=== PATIENT | male | born 1960 | race Caucasian/White ===

== ENCOUNTER 2024-12-10 13:13 | Emergency (ER) | payer MEDICARE, OTHER, SELFPAY ==
--- NOTE | ~2024-12-10 | XR_ITS ---
HISTORY: back pain COMPARISON: 02/07/2016 TECHNIQUE: 2 view lumbar spine. FINDINGS: Redemonstration of trace levoscoliotic curvature of the lumbar spine centered at the level of L3/L4, unchanged from prior. Remaining lumbar vertebral bodies are otherwise normally aligned. There are 5 non-rib bearing lumbar vertebral bodies. Disc spaces and vertebral body heights are well maintained. There are no lytic or sclerotic lesions. Paraspinal soft tissues are unremarkable. Trace degenerative disease with osteophyte formation. IMPRESSION: Trace degenerative disease, without acute compression fracture. Reviewed, dictated and finalized at location A.
--- NOTE | ~2024-12-10 | XR_ITS ---
HISTORY: back pain COMPARISON: None TECHNIQUE: 3 views of the thoracic spine were performed FINDINGS: No acute compression fracture is present. Bone mineralization is age-appropriate. There are bridging endplate osteophytes at multiple levels in the spine, consistent with diffuse idio pathic skeletal hyperostosis (DISH). IMPRESSION: No acute compression fracture, as detailed above. Reviewed, dictated and finalized at location A.
--- OUTSIDE RECORDS SUMMARY | 2024-12-10 13:16 | XMS_ITS | Continuity of Care Document ---
Author Organization [facility] Address [address] [place] [address] Phone Care Team Providers Care Card Tender Name Role Phone Prema Mg Unavailable Unavailable Procedures Procedure Date Eye Exam & Treatment Refraction Special Reports Or Forms Office/outpatient Visit, Est No Script Remove Foreign Body From Eye Eye Exam & Treatment Refraction Eye Exam & Treatment Advance Directives Directive Yes / No Effective Date File Name No Information Encounters Encounter Description Practice Location Reason(s) For Visit Diagnoses Date Provider Providers Copied on Encounter [facility], [address] [place] [address] [address], [place], [place], [id number], tel:[phone] [facility] No Information 1-201 0 Haritha Lloyd. [address] [facility] , [address], [place], [place], [facility], . tel:[phone] [facility], [address] [place] [address] [address], [place], [place], [id number], [place] tel:[phone] [facility] No Information 6-200 9 Roper OD Franki. [address] , [address], [place], [place], [facility], . tel:[phone] Office/outpat ient Visit, Est [facility], [address] [place] [address] [address], [place], [place], [id number], tel:[phone] [facility] No Information 7-200 9 Roper OD Franki. [address] [facility] , [address], [place], [place], [facility], . tel:[phone] [facility], [address] [place] [address] [address], [place], [place], [id number], tel:[phone] [facility] No Information 0-200 9 Roper OD Franki. [address] [facility] , [address], [place], [place], [facility], . tel:[phone] Referring Provider: Franki Roper OD A, [address] [place], [place] [address]ate [address], [place], [place], [facility]. tel:[phone] [facility], [address] [place] [address] [address], [place], [place], [id number], tel:[phone] [facility] No Information 2 1-200 9 Mg Prema. [facility] [address], [address], [place], [place], [facility], . tel:[phone] [facility], [address] [place] [address] [address], [place], [place], [id number], tel:[phone] [facility] No Information Oct-0 9-200 7 Mg Prema. [facility] , [address], [place], [place], [facility], . tel:[phone] Family History Family Member Type Diagnosis Age At Onset No Information Payers Payer name Insurance type Covered alliance party ID Authordayanaa tishelton(s) Medicare [place] 09 [id number] Social History Type Description Quantity Date Captured Comments Sex Male Smoking Status No Information Chief Complaint And Reason For Visit No Information Reason For Referral Reason For Referral No Information History Of Present Illness Encounter Date Complaint History Of Prese nt Illness No Information Functional Status Date Functional Assessmen t No Information Instructions Date Instruction Additional Infor mation No Information Assessments Type Assessment Date No Information Patient Care Teams Name Effective Dates (start - stop) Status Members No Information
--- OUTSIDE RECORDS SUMMARY | 2024-12-10 13:16 | XMS_ITS | Clinical Summary ---
Author Organization [facility] Address [facility] [place] [address] Care Team Providers Care Kier Tender Name Role Phone Unavailable Primary Care Provider Unavailabl e Social History Tobacco Use Types Packs/Day Years Used Date Smoking Tobacco: Never Assessed Sex and Gender Information Value Date Recorded Sex Assigned at Not on file Legal Sex Male 7:30 PM CDT Gender Identity Not on file Sexual Orientation Not on file Plan of Treatment Health Maintenance Due Date Last Done Comments Colorectal Cancer Screening Colonoscopy (10 Years) 1960 Hepatitis C 1976 DTaP, Tdap and Td Vaccines ( 1 - Tdap) 1977 Zoster Vaccines (1 of 2) 2008 Pneumococcal Vaccine: 65+ Ye ars (1 of 1 - PCV) 2023 COVID-19 Vaccine ( - 2023-2 5 season) 2024 Influenza Adult (#1) 2024 RSV Immunization or 60+ Years (1 - 1-dose 75+ series) 2033 Meningococcal B Vaccine Aged Out No l onger eligible based on patient's age to complete this topic Meningococcal Vaccine Aged Out No ron manoj eligible based on patient's age to complete this topic RSV Immunizations Under 20 Months Aged Out No longer eligible based on patient's age to complete this topic
--- OUTSIDE RECORDS SUMMARY | 2024-12-10 13:22 | XMS_ITS | Continuity of Care Document ---
Author Organization [facility] Address [address] [place] [address] Phone Care Team Providers Care Credit Union Manager Name Role Phone Prema Mg Unavailable Unavailable [...] Diagnoses Date Provider Providers Copied on Encounter Located within [facility], [address] [place] [address] [address], [place], [place], [id number], tel:[phone] [facility] No Information 1-201 0 Haritha Lloyd. [address] [facility] , [address], [place], [place], [facility], . tel:[phone] Located within [facility], [address] [place] [address] [address], [place], [place], [id number], [place] tel:[phone] [facility] No Information 6-200 9 Roper OD Franki. [address] , [address], [place], [place], [facility], . tel:[phone] Office/outpat ient Visit, Est Located within [facility], [address] [place] [address] [address], [place], [place], [id number], tel:[phone] [facility] No Information 7-200 9 Roper OD Franki. [address] [facility] , [address], [place], [place], [facility], . tel:[phone] [facility], [address] [place] [address] [address], [place], [place], [id number], tel:[phone] [facility] No Information 0-200 9 Roper OD Franki. [address] [facility] , [address], [place], [place], [facility], . tel:[phone] Referring Provider: Franki Roper OD A, [address] [place], [place] [address]ate [address], [place], [place], [facility]. tel:[phone] Located within [facility], [address] [place] [address] [address], [place], [place], [id number], tel:[phone] [facility] No Information 2 1-200 9 Mg Prema. [facility] [address], [address], [place], [place], [facility], . tel:[phone] Located within [facility], [address] [place] [address] [address], [place], [place], [id number], tel:[phone] [facility] No Information Oct-0 9-200 7 Mg Prema. [facility] , [address], [place], [place], [facility], . tel:[phone] Family History Family Member Type Diagnosis Age At Onset No Information Payers Payer name Insurance type Covered green party ID Authordayanaa tishelton(s) Medicare [place] 09 [id number] Social History Type Description Quantity Date Captured [...]
--- NOTE | 2024-12-10 13:26 | ED.GENADULT ---
HPI - General Adult General Chief complaint: Back Pain/Injury Stated complaint: sciatica acting up Time Seen by Provider: 12/10/24 13:26 Source: patient Mode of arrival: ambulatory Limitations: no limitations History of Present Illness HPI narrative: 64-year-old male patient presents to [facility] with complaints of left-sided lower back pain that radiates to the left hip. Patient states this came on suddenly yesterday. Patient states he was sitting there watching a friend work on his motorcycle when the pain started. Denies any falls or trauma. Patient states he does have history of spurs in this fine. Patient states that the pain got increasingly worse yesterday around 3:00 p.m.. Patient states that he is having difficulty walking he is having numbness and tingling down the legs. Patient states that he attempted to go to the bathroom and did lose a little bit of control of his urine and dribbles . Denies any pain with urination. Denies fevers, body aches or chills. Patient did have some Tylenol, ibuprofen and muscle relaxants at home that he did take about 10:00 a.m. this morning that has not helped. Patient rates pain 03/23 Related Data Home Medications ?Medication ?Instructions ?Recorded ?Confirmed ?Last Taken ?Type acetaminophen 500 mg oral powder 1,000 mg PO Q6H 12/10/24 Unknown History packet (Tylenol Extra Strength) ibuprofen 800 mg tablet (IBU) 800 mg PO TID 12/10/24 Unknown History methocarbamol 500 mg tablet 500 mg PO TID 12/10/24 Unknown History Allergies Allergy/AdvReac Type Severity Reaction Status Date / Time No Known Allergies Allergy Verified 12/10/24 13:36 Review of Systems Review of Systems: CONSTITUTIONAL: Denies fever, chills, or sweats. EYES: Denies visual changes, redness, or discharge. ENT: Denies rhinorrhea, congestion, sore throat, or otalgia. CARDIOVASCULAR: Denies chest pain, palpitations, or edema. RESPIRATORY: Denies cough or dyspnea. GASTROINTESTINAL: Denies abdominal pain, nausea, vomiting, or diarrhea. GENITOURINARY: Denies dysuria or hematuria. SKIN: Denies rash or itching. MUSCULOSKELETAL: Denies back pain, joint pain, or myalgia. NEUROLOGIC: Denies headache, numbness, or weakness. PSYCHIATRIC: Denies anxiety or depression. PMFSH Past Medical History Medical History Anxiety Chronic back pain Fractures left hand, right hand, right forearm, left forearm, chip bones and legs Arthritis back, knees, hips, legs GERD (gastroesophageal reflux disease) Hypercholesteremia Hypertension Heart murmur Cataract Surgical History Surgical History History of appendectomy Social History Social History Smoking status: Current every day smoker Alcohol intake: never Comments At the time of my signature I agree with nursing past medical history, surgical, social, and family history. There is no relevant family history pertinent to the presenting complaint. Exam Narrative: GENERAL: Well-appearing, well-nourished, and in no acute distress. HEAD: Normocephalic, atraumatic. EYES: PERRLA and EOMI. ENT: Nares clear, no rhinorrhea or epistaxis. Mucous membranes moist. NECK: Supple. No lymphadenopathy CHEST: Clear to auscultation. No respiratory distress. HEART: Regular rate and rhythm. No murmur heard. Normal peripheral pulses. ABDOMEN: Soft, nontender, nondistended, normal active bowel sounds. EXTREMITIES: Normal range of motion. No edema. BACK: Patient is not able to ambulated without assistance. patient arrives to exam room in wheelchair. Pt is seated In the wheelchair in obvious distress. No surface trauma noted. muscle tenderness to Palpation of the T9 and L2 through L5 on palpation. No Obvious spasm or mass. No step-offs or deformity noted to the cervical, thoracic or lumbar spine to firm Palpation at the midline. patient does have tenderness along T9 through L2 to through L5 on palpation of the spine. No CVA tenderness to percussion. No saddle anesthesia. ROM:unable to stand erect. Unable to assess range of motion due to complaint of pain. SKIN: Warm, dry, no rash. NEURO: No focal deficits. Alert and oriented x3. Course Course Level of Care: Express Care Visit Reevaluation(s) Reevaluation #1: re-evaluated patient notified him that his x-ray does not show any concerns for compression fractures or stenosis. Discussed with patient that his urine today is clear and there is no evidence of a possible UTI or kidney stone at this time. Discussed with him this most likely is a flare-up of his sciatica with radiculopathy. Plan of care is to continue his muscle relaxants that he has at home and I will also provide him steroids to help with the pain. Discussed with him to call his medical provider on Thursday to discuss possible physical therapy for him as well. Patient verbalized understanding denies any other questions or concerns at this time. Date: 12/10/24 Time: 14:27 Vital Signs Vital signs: Vital Signs Temperature 36.8 C 12/10/24 13:32 Pulse Rate 68 12/10/24 13:32 Respiratory Rate 18 12/10/24 13:32 Blood Pressure 176/74 H 12/10/24 13:32 Pulse Oximetry 99 12/10/24 13:32 Oxygen Delivery Room Air 12/10/24 13:32 Temperature 36.8 C 12/10/24 13:32 Pulse Rate 68 12/10/24 13:32 Respiratory Rate 18 12/10/24 13:32 Blood Pressure 176/74 H 12/10/24 13:32 Pulse Oximetry 99 12/10/24 13:32 Oxygen Delivery Room Air 12/10/24 13:32 Vital signs reviewed. The patient has been informed that they may have pre-hypertension or Hypertension based on a BP reading in the department. I recommend that the patient call the primary care provider listed on their discharge instructions or a physician of their choice this week to arrange follow up for further evaluation of possible pre-hypertension or Hypertension Medical Decision Making MDM Narrative Medical decision making narrative: plan of care for patient is to check a urine sample to assess for blood in the urine to rule out kidney stone. We will also x-ray the thoracic and lumbar spine to see if there is any concerning findings that could be associated with the pain. I will reassess once this has resulted. Differential Diagnosis Differential Diagnosis: Differential diagnosis: Acute musculoskeletal injury or exacerbation, neurological emergency, acute coronary syndrome, kidney stones, epidural abscess or hematoma,Cauda Equina Syndrome, herniation. Vital Signs Vital Signs: Vital Signs Temperature 36.8 C 12/10/24 13:32 Pulse Rate 68 12/10/24 13:32 Respiratory Rate 18 12/10/24 13:32 Blood Pressure 176/74 H 12/10/24 13:32 Pulse Oximetry 99 12/10/24 13:32 Oxygen Delivery Room Air 12/10/24 13:32 Temperature 36.8 C 12/10/24 13:32 Pulse Rate 68 12/10/24 13:32 Respiratory Rate 18 12/10/24 13:32 Blood Pressure 176/74 H 12/10/24 13:32 Pulse Oximetry 99 12/10/24 13:32 Oxygen Delivery Room Air 12/10/24 13:32 Lab Data Labs: Lab Results 12/10/24 Range/Units 14:00 POC Urine Color Yellow POC Urine Clarity Clear POC Urine pH 6.0 POC Ur Specif Wilmot 1.030 POC Urine Protein Negative (Negative) POC Ur Glucose (UA) Negative (Negative) POC Urine Ketones Negative (Negative) POC Urine Blood Negative (Negative) POC Urine Nitrite Negative (Negative) POC Urine Bilirubin Negative (Negative) POC Urine Urobilinogen 1.0 POC U Leukocyte Esteras Negative (Negative) Imaging Data Radiologist's impression: [place] [id number] XRay Report Signed Patient: Clayton Moser : 1960 MR#: [id number] Age: 64 Acct:[id number] Loc: [facility] ADM Date: 12/10/24Attending Dr: Ordering Physician: Tammy Santa APRN Date of Service: 12/10/24 Procedure(s): XR thoracic spine 3V Accession Number(s): [id number] cc: [facility] [place]; Tammy Santa [employer]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 Bone mineralization is age-appropriate. There are bridging endplate osteophytes at multiple levels in the spine, consistent with diffuse idiopathic skeletal hyperostosis (DISH). IMPRESSION: No acute compression fracture, as detailed above. Critical Care Time Critical Care Time Critical Care Time: No Discharge Plan Discharge Clinical Impression: Lumbar radiculopathy Sciatica Qualifiers: Laterality: left Qualified Code(s): M54.32 - Sciatica, left side Patient Disposition: Home, Self-Care Condition: Stable Instructions: Antibiotic Form, Sciatica (ED), Lumbar Radiculopathy (ED), Lower Back Exercises (ED) Additional Instructions: Ice and heat to the area for 20-30 minutes Gentle stretching exercises Gentle massage Caution with lifting, bending, stooping, twisting Avoid pushing, pulling take muscle relaxants as directed--caution drowsiness and no driving or alcohol Anti-inflammatory medicine as directed--take with food He may take the muscle relaxant and anti-inflammatory at the same time Follow-up with your PCP if not improving in 5-7 days Patient Language: Citizen Of [place] Prescriptions: New prednisone 50 mg tablet 50 mg PO DAILY 7 Days Qty: 7 0RF No Action ibuprofen [IBU] 800 mg tablet 800 mg PO TID Tylenol Extra Strength 500 mg powder in packet 1,000 mg PO Q6H methocarbamol 500 mg tablet 500 mg PO TID Follow-up/Referrals: [facility] [Primary Care Provider] - Time of Disposition: 14:26
[2024-12-10 13:32] VITALS: BP 176/74; PULSE 68; RESP 18; TEMP 36.8; O2SAT 99
[2024-12-10] MEDS: KETOROLAC (*BKC) 60 MG/2 ML VIAL IM (13:54)
[2024-12-10 14:05] LABS: EDUAAPPEAR Clear; EDUABILI Negative (Negative); EDUABLOOD Negative (Negative); EDUACOLOR1 Yellow; EDUAGLUCOSE Negative (Negative); EDUAKETONE Negative (Negative); EDUALEUKO Negative (Negative); EDUANITRATE Negative (Negative); EDUAPROTEIN Negative (Negative)
== END 2024-12-10 14:38 | disposition home or self-care (01) ==
PROVIDERS: Emergency Provider Nurse Practitioner Family
DX: M54.16 Radiculopathy, lumbar region (principal); M54.32 Sciatica, left side; F17.200 Nicotine dependence, unspecified, uncomplicated; I10 Essential (primary) hypertension; R01.0 Benign and innocent cardiac murmurs; E78.00 Pure hypercholesterolemia, unspecified; M17.0 Bilateral primary osteoarthritis of knee; M16.0 Bilateral primary osteoarthritis of hip; H26.9 Unspecified cataract
CPT/HCPCS: 72072; 72100; 81003; 96372; 99203; G0463; J1885